=== PATIENT | male | born 1950 | race Caucasian/White ===

== ENCOUNTER 2017-03-05 21:50 | Emergency (ER) | payer OTHER, MEDICAID ==
[~2017-03-05] VITALS: Ht 170.2 cm; Wt 69.9 kg
[~2017-03-05 21:50] MED LIST: ACET-2991 PO; BETA1CRE TP; DOCU-67 PO; MAGN400S60 PO; MECL-305 PO; MELO7.5T11 PO; MIRT15TA PO; MULT-298 PO; TRAM50TA94 PO; VALS160T2 PO; [UNRECOGNIZED DRUG - CODE] PO
--- NOTE | 2017-03-05 22:01 | NUR ---
BIBA TO ER OF3
[2017-03-05 22:06] VITALS: BP 173/84
--- NOTE | 2017-03-05 22:40 | NUR ---
[facility] CALLED SPOKE TO DISPATCH DARNELL. [facility] ETA TO [facility] ER 30MINS
--- NOTE | 2017-03-05 23:03 | NUR ---
MOVED TO ER BED 7
--- NOTE | 2017-03-05 23:12 | NUR ---
66Y/M PT. BIBA TO ED WITH C/O HEADACHE X 1 WK. PT. ALLEGED GOT ASSUALT AT [facility] BY ROOMMATE. HAVING HEADACHE X 1 WK. HX. HTN. AAO X4, AMBULATORY WITH W/C ASSIST. GCS 15, RESPIRATIONS ROOM AIR, EVEN AND UNLABORED. SKIN WARM AND DRY, NO APPARENT INJURY. C/O HEADACHE 02/18. VSS, ER MADE AWARE OF PT. STATUS.
--- NOTE | 2017-03-05 23:25 | NUR ---
Patient being evaluated by physician at bedside.
--- NOTE | 2017-03-05 23:33 | NUR ---
[place] [employer] AT BEDSIDE
--- NOTE | 2017-03-06 00:02 | NUR ---
OFFICER LYNDSAY SPOKE TO FAMILY AND PT ONLY. NO INFO REGUARDING PATIENT STATUS GIVENTO ER MD DR VELASQUEZ. I CALLED [facility] OFFICER LYNDSAY WILL COME BACK TO [facility].
--- NOTE | 2017-03-06 01:00 | NUR ---
Patient discharged with v/s stable. Written and verbal after care instructions given and explained. Patient verbalized understanding. Wheel Chair Assisted with to car. All questions addressed prior to discharge. Advised to follow up with PMD.
[2017-03-06 01:05] VITALS: BP 147/79
--- NOTE | 2017-03-06 01:35 | NUR ---
PT CALLED FAMILY TO PICK HIM UP. PT WAITING IN W/C IN OF
== END 2017-03-06 01:00 | disposition home or self-care (01) ==
LOC: MED 21:50
DX: R51 Headache (principal); R42 Dizziness and giddiness; R68.84 Jaw pain; I10 Essential (primary) hypertension; Y04.8XXA Assault by other bodily force, initial encounter
CPT/HCPCS: 70450; 72125; 99284